=== PATIENT | female | born 2000 | race Caucasian/White ===

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

== ENCOUNTER 2021-01-29 05:55 | Emergency (ER) | payer MEDICAID, OTHER ==
[~2021-01-29] VITALS: Ht 163.8 cm; Wt 118.0 kg
--- NOTE | 2021-01-29 06:16 | NUR ---
INITIAL PT CONTACT. PT PRESENTS TO ED C/O NUMBNESS AND "WEIRD SENSATION TO MY RIGHT LOWER LEG AND FOOT." PT STATES ABOUT 4-5 DAYS AGO SHE WOKE UP AND WAS HAVING WEAKNESS IN HER RIGHT LEG, STATES SOME NUMBNESS WELL. PT ABLE TO BEAR WEIGHT AND MOVE LEG BUT STATES HAVING DIFFICULTY WALKING ON IT. DENIES ANY TRAUMA. PT SITTING UPRIGHT ON GURNEY, NADN, VSS. AWAITING ERP
--- NOTE | 2021-01-29 06:51 | NUR ---
REPORT TO NATALYA BETTS
[2021-01-29] MEDS ORDERED: ONDANSETRON ODT 4 MG PO ONE (07:30)
[2021-01-29] MEDS ORDERED: HYDROcodone/APAP 5/325 TABLET PO ONE (07:30)
[2021-01-29] MEDS ORDERED: CYCLOBENZAPRINE 10 MG TABLET PO ONE (07:30)
[2021-01-29] MEDS ORDERED: ONDANSETRON ODT 4 MG ONE (07:32)
[2021-01-29] MEDS ORDERED: HYDROcodone/APAP 5/325 TABLET ONE (07:33)
[2021-01-29] MEDS ORDERED: CYCLOBENZAPRINE 10 MG TABLET ONE (07:33)
--- NOTE | 2021-01-29 07:38 | NUR ---
PT BACK FROM CT. MEDS ADMIN PER JUL.
[2021-01-29] MEDS ORDERED: COVID-19 VACC,MRNA(MODERNA)/PF 100 MCG/0.5ML IM-VACC ONE ×2 (08:30)
--- NOTE | 2021-01-29 08:30 | NUR ---
PT STATES PAIN IS BETTER AFTER MEDS
--- NOTE | 2021-01-29 08:45 | NUR ---
PT AT MRI
--- NOTE | 2021-01-29 09:38 | NUR ---
PT BACK FROM IR. CERTIFIED TASK RN AT BEDSIDE FOR COVCrowdpac VACCINE.
[2021-01-29 09:58] VITALS: BP 118/70
== END 2021-01-29 10:31 | disposition home or self-care (01) ==
LOC: ED 09:49
DX: M54.41 Lumbago with sciatica, right side (principal); M79.661 Pain in right lower leg; M25.551 Pain in right hip; F17.200 Nicotine dependence, unspecified, uncomplicated; Z23 Encounter for immunization; E66.9 Obesity, unspecified; Z68.41 Body mass index [BMI] 40.0-44.9, adult
CPT/HCPCS: 0011A; 72131; 72148; 91301; 99285; J7512; Q0162

== ENCOUNTER 2021-02-01 21:01 | Emergency (ER) | payer OTHER ==
[~2021-02-01] VITALS: Ht 162.6 cm; Wt 117.3 kg
[2021-02-01 21:17] VITALS: BP 156/94
--- NOTE | 2021-02-01 22:01 | NUR ---
1 WEEK AGO RIGHT LEG NUMBNESS. SEEN 2 DAYS AGO FOR THIS. WOUND TO RIGHT ANKLE AND REDNESS AND SWELLING TO FOOT UNABLE TO RECALL MAJORITY OF EVENTS SURROUNDING WOUND
[2021-02-01] MEDS ORDERED: CEPHALEXIN 500 MG CAPSULE ONE (22:19)
[2021-02-01] MEDS ORDERED: CEPHALEXIN 500 MG CAPSULE PO ONE (22:30)
== END 2021-02-01 22:27 | disposition home or self-care (01) ==
LOC: ED 21:06
DX: L03.115 Cellulitis of right lower limb (principal); G62.9 Polyneuropathy, unspecified; F17.210 Nicotine dependence, cigarettes, uncomplicated
CPT/HCPCS: 99406